=== PATIENT | female | born 1960 | race Caucasian/White ===

== ENCOUNTER 2016-06-25 14:07 | Emergency (ER) | payer SELFPAY ==
[2016-06-25] MEDS ORDERED: HYDROcodone/Acetaminophen 10/325 mg Tablet ONE (15:59)
--- NOTE | 2016-06-25 16:25 | CT ---
CT HEAD NONCONTRAST: History: Headache. Comparison: 09-28-15 FINDINGS: Large right frontoparietal craniectomy defect and small metallic fragments in the operative bed and at the right orbit are again demonstrated. There is slight leftward shift of the septum pellucidum w ithout dilatation of the ventricular system. No acute intracranial hemorrhage is evident. IMPRESSION: 1. Extensive post-operative and post-traumatic changes. No acute intracranial abnormalities are demo nstrated on noncontrast CT head. POS: [facility]
== END 2016-06-25 16:45 | disposition home or self-care (01) ==
LOC: MADERS 14:07
DX: S01.511A Laceration without foreign body of lip, initial encounter (principal); F32.9 Major depressive disorder, single episode, unspecified; F41.9 Anxiety disorder, unspecified; F17.210 Nicotine dependence, cigarettes, uncomplicated; Z79.899 Other long term (current) drug therapy; W18.30XA Fall on same level, unspecified, initial encounter
CPT/HCPCS: 12011; 70450

== ENCOUNTER 2016-12-31 17:25 | Emergency (ER) | payer OTHER, SELFPAY ==
[~2016-12-31 17:25] MED LIST: Sodium Chloride Irrig Solution 250 ML BOT ONE
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
== END 2016-12-31 18:50 | disposition home or self-care (01) ==
LOC: MADERS 17:25
DX: S91.112A Laceration without foreign body of left great toe without damage to nail, initial encounter (principal); S90.31XA Contusion of right foot, initial encounter; F41.9 Anxiety disorder, unspecified; F32.9 Major depressive disorder, single episode, unspecified; F17.210 Nicotine dependence, cigarettes, uncomplicated; V43.62XA Car passenger injured in collision with other type car in traffic accident, initial encounter

== ENCOUNTER 2017-01-03 16:33 | Emergency (ER) | payer SELFPAY ==
[~2017-01-03 16:33] MED LIST changes: +Iopamidol 370 76% 100 ML VIAL ONE; -Sodium Chloride Irrig Solution 250 ML BOT ONE
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
== END 2017-01-03 18:23 | disposition home or self-care (01) ==
LOC: MADERS 16:33
DX: S20.212A Contusion of left front wall of thorax, initial encounter (principal); R10.812 Left upper quadrant abdominal tenderness; F41.9 Anxiety disorder, unspecified; F32.9 Major depressive disorder, single episode, unspecified; F17.210 Nicotine dependence, cigarettes, uncomplicated; V43.92XA Unspecified car occupant injured in collision with other type car in traffic accident, initial encounter
CPT/HCPCS: 71260; 74177

== ENCOUNTER 2018-11-03 15:11 | Inpatient (IN) | payer BC ==
[2018-11-03 15:21] VITALS: BMI 18.6
[2018-11-03] MEDS: ALPRAZolam 0.5 MG TAB PO PRN (18:15)
[2018-11-03] MEDS ORDERED: Oxybutynin ER 5 MG TAB PO SCH (19:15)
[2018-11-03] MEDS: levETIRAcetam 500 MG TAB PO SCH (21:09)
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
[2018-11-04 04:14] LABS: Bilirubin Negative (Negative); Blood, Urine Negative (Negative); Clarity Slightly Cloudy (Clear); Glucose, Urine (Dipstick) Negative (Negative); Leukocyte Small (Negative); Nitrite Negative (Negative); Protein, Urine (Dipstick) Negative (Neg-Trace); Urine Culture Reflex No No; Urobilinogen 0.2 mg/dL (Less than 2)
[2018-11-04 04:21] LABS: RBC/HPF 0-3 HPF (0-3)
[2018-11-04 04:22] LABS: Bacteria/HPF 2+ HPF (None Seen)
[2018-11-04] MEDS: ALPRAZolam 0.5 MG TAB PO PRN ×3 (04:54→16:15)
[2018-11-04 07:31] LABS: #Basophils 0.1 thou/uL (0.0-0.2); #Eosinphils 0.2 thou/uL (0.0-0.7); #Lymphocytes 1.7 thou/uL (1.20-3.40); #Monocytes 0.4 thou/uL (0.11-0.59); %Eosinophils 2.5 % (0.0-10.0); %Monocytes 6.3 % (0.0-10.0); %Neutrophils 63.2 % (42.0-75.0); Hemoglobin 16.4 g/dL (12.0-16.0); Mean Corpuscular HGB CONC 32.9 g/dL (32.0-36.0); Mean Corpuscular Volume 91.3 fL (78.0-98.0); Mean Platelet Volume 4.7 fL (7.4-10.4); Platelet Count 334 thou/uL (130-400); RBC Distribution Width 12.5 % (11.5-14.5); Red Blood Cell (RBC) Count 5.45 mill/uL (4.20-5.40); White Blood Cell (WBC) Count 6.4 thou/uL (4.8-10.8)
[2018-11-04 07:43] LABS: Anion Gap 15 mmol/L (10-20); BUN (Urea Nitrogen) 10 mg/dL (9.8-20.1); Calc. Creatinine Clearance 74 mL/min (70-130); Calcium 9.7 mg/dL (7.8-10.44); Carbon Dioxide 28 mmol/L (22-29); Chloride 103 mmol/L (98-107); Estimated GFR-MDRD 85; Glucose 86 mg/dL (70-105); Potassium 4.7 mmol/L (3.5-5.1); Sodium 141 mmol/L (136-145)
[2018-11-04] MEDS: levETIRAcetam 500 MG TAB PO SCH ×2 (09:12→21:43)
[2018-11-04] MEDS: Oxybutynin ER 5 MG TAB PO SCH (09:52)
[2018-11-04] MEDS: Acetaminophen 500 MG TAB PO PRN (12:54)
[2018-11-04] MEDS: Melatonin 3 MG TAB PO PRN (21:43)
[2018-11-05] MEDS: busPIRone HCl 5 MG TAB PO PRN ×2 (05:51→20:36)
[2018-11-05] MEDS: Oxybutynin ER 5 MG TAB PO SCH (08:08)
[2018-11-05] MEDS: levETIRAcetam 500 MG TAB PO SCH ×2 (08:08→20:35)
[2018-11-05] MEDS: Acetaminophen 500 MG TAB PO PRN (08:14)
[2018-11-05] MEDS: Melatonin 3 MG TAB PO PRN (20:36)
[2018-11-06] MEDS: levETIRAcetam 500 MG TAB PO SCH (08:24)
[2018-11-06] MEDS: Oxybutynin ER 5 MG TAB PO SCH (08:24)
[2018-11-06] MEDS: busPIRone HCl 5 MG TAB PO PRN (08:25)
[2018-11-06 13:00] VITALS: BP 123/67; TEMP 97.6
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
== END 2018-11-06 13:16 | disposition home or self-care (01) | DRG 101 ==
LOC: MADMS 15:11 → UNDOADMIN 15:11
PROVIDERS: ADMIT Family Medicine; ATTEND Family Medicine
DX: G40.909 Epilepsy, unspecified, not intractable, without status epilepticus (principal); R53.1 Weakness; R26.9 Unspecified abnormalities of gait and mobility; Z87.891 Personal history of nicotine dependence; F15.11 Other stimulant abuse, in remission; Z91.14 Patient's other noncompliance with medication regimen; Z91.19 Patient's noncompliance with other medical treatment and regimen; Z87.820 Personal history of traumatic brain injury
CPT/HCPCS: 80048; 80177; 81001; 85025; 87086

== ENCOUNTER 2019-10-13 18:00 | Inpatient (IN) | payer BC, OTHER ==
[2019-10-13] MEDS ORDERED: Milk Of Magnesia 30 ML UDCUP PO PRN ×2 (20:34→21:06)
[2019-10-13] MEDS ORDERED: Acetaminophen 500 MG TAB PO PRN (20:36)
[2019-10-13] MEDS ORDERED: Cepastat Lozenges 1 LOZ PO PRN ×2 (20:36→21:06)
[2019-10-13] MEDS ORDERED: levETIRAcetam 500 MG TAB PO SCH (21:00)
[2019-10-13] MEDS ORDERED: Trospium 20 MG TAB PO SCH (21:00)
[2019-10-13] MEDS: Clindamycin 150 MG CAP PO SCH (23:13)
[2019-10-13] MEDS ORDERED: Bisacodyl 10 MG SUPP PR PRN (23:17)
[2019-10-13] MEDS ORDERED: Mag-Al Plus 1200 MG/1200 MG/120 MG/30 ML UDCUP PO PRN (23:17)
[2019-10-13] MEDS ORDERED: Clindamycin 150 MG CAP PO SCH (23:59)
[2019-10-14] MEDS: Acetaminophen 500 MG TAB PO PRN ×3 (00:32→14:35)
[2019-10-14] MEDS: Clindamycin 150 MG CAP PO SCH ×4 (05:38→23:56)
[2019-10-14] MEDS: levETIRAcetam 500 MG TAB PO SCH ×2 (08:23→20:42)
[2019-10-14] MEDS: Trospium 20 MG TAB PO SCH ×2 (08:23→20:44)
[2019-10-14] MEDS ORDERED: Mupirocin 2% Ointment 22 GM Tube TOP SCH ×2 (09:00)
[2019-10-14] MEDS ORDERED: ESTRADIOL 0.01% VAG SCH ×2 (09:00→21:00)
[2019-10-14] MEDS ORDERED: ESTRADIOL VAG SCH (09:00)
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
[2019-10-14 17:18] LABS: SARS-CoV-2 MS2 Positive; SARS-CoV-2 N Gene Negative; SARS-CoV-2 S Gene Negative; SARS-CoV-2 by NAA Not Detected (NotDetected); SARS-CoV-2 orf1ab Negative
[2019-10-14] MEDS: Mupirocin 2% Ointment 22 GM Tube TOP SCH (20:42)
[2019-10-14] MEDS: Acetaminophen 325 MG TAB PO PRN (20:45)
[2019-10-15] MEDS: Clindamycin 150 MG CAP PO SCH ×3 (05:47→17:52)
[2019-10-15] MEDS: Acetaminophen 325 MG TAB PO PRN ×5 (06:22→21:49)
[2019-10-15] MEDS: levETIRAcetam 500 MG TAB PO SCH ×2 (08:01→21:49)
[2019-10-15] MEDS: Trospium 20 MG TAB PO SCH ×2 (08:01→21:48)
[2019-10-15] MEDS: Mupirocin 2% Ointment 22 GM Tube TOP SCH (21:50)
[2019-10-15] MEDS: Estradiol 0.01% Vaginal Cream 42.5 gm Tube VAG SCH (21:50)
[2019-10-16] MEDS: Clindamycin 150 MG CAP PO SCH ×5 (00:01→23:52)
[2019-10-16] MEDS: Acetaminophen 325 MG TAB PO PRN ×3 (08:05→19:51)
[2019-10-16] MEDS: Trospium 20 MG TAB PO SCH ×2 (08:06→20:57)
[2019-10-16] MEDS: levETIRAcetam 500 MG TAB PO SCH ×2 (08:06→20:57)
[2019-10-16] MEDS: Mupirocin 2% Ointment 22 GM Tube TOP SCH (20:57)
[2019-10-16] MEDS: Estradiol 0.01% Vaginal Cream 42.5 gm Tube VAG SCH (20:59)
[2019-10-17] MEDS: Clindamycin 150 MG CAP PO SCH ×4 (05:32→23:01)
[2019-10-17] MEDS: Acetaminophen 325 MG TAB PO PRN ×3 (05:33→23:01)
[2019-10-17] MEDS: Trospium 20 MG TAB PO SCH ×2 (08:04→20:04)
[2019-10-17] MEDS: levETIRAcetam 500 MG TAB PO SCH ×2 (08:04→20:04)
[2019-10-17] MEDS: Estradiol 0.01% Vaginal Cream 42.5 gm Tube VAG SCH (20:05)
[2019-10-17] MEDS: Mupirocin 2% Ointment 22 GM Tube TOP SCH (20:05)
[2019-10-18] MEDS: Clindamycin 150 MG CAP PO SCH ×4 (05:33→23:57)
[2019-10-18] MEDS: Trospium 20 MG TAB PO SCH ×2 (08:08→20:52)
[2019-10-18] MEDS: levETIRAcetam 500 MG TAB PO SCH ×2 (08:08→20:52)
[2019-10-18] MEDS: Acetaminophen 325 MG TAB PO PRN ×4 (08:11→23:57)
[2019-10-18] MEDS: Estradiol 0.01% Vaginal Cream 42.5 gm Tube VAG SCH (20:53)
[2019-10-18] MEDS: Mupirocin 2% Ointment 22 GM Tube TOP SCH (20:54)
[2019-10-19] MEDS: Clindamycin 150 MG CAP PO SCH ×4 (05:39→23:42)
[2019-10-19] MEDS: Acetaminophen 325 MG TAB PO PRN ×5 (05:39→23:42)
[2019-10-19] MEDS: Trospium 20 MG TAB PO SCH ×2 (08:11→21:55)
[2019-10-19] MEDS: levETIRAcetam 500 MG TAB PO SCH ×2 (08:11→21:55)
[2019-10-19] MEDS: Mupirocin 2% Ointment 22 GM Tube TOP SCH (21:56)
[2019-10-19] MEDS: Estradiol 0.01% Vaginal Cream 42.5 gm Tube VAG SCH (21:57)
[2019-10-20] MEDS: Acetaminophen 325 MG TAB PO PRN ×4 (03:14→20:56)
[2019-10-20] MEDS: Clindamycin 150 MG CAP PO SCH ×3 (05:42→17:30)
[2019-10-20] MEDS: Trospium 20 MG TAB PO SCH ×2 (09:20→20:00)
[2019-10-20] MEDS: levETIRAcetam 500 MG TAB PO SCH ×2 (09:20→20:00)
[2019-10-20] MEDS: Mupirocin 2% Ointment 22 GM Tube TOP SCH (20:02)
[2019-10-20] MEDS: Estradiol 0.01% Vaginal Cream 42.5 gm Tube VAG SCH (20:02)
[2019-10-21] MEDS: Clindamycin 150 MG CAP PO SCH ×4 (00:43→17:00)
[2019-10-21] MEDS: Acetaminophen 325 MG TAB PO PRN ×5 (00:43→21:22)
[2019-10-21] MEDS: levETIRAcetam 500 MG TAB PO SCH ×2 (08:19→21:22)
[2019-10-21] MEDS: Trospium 20 MG TAB PO SCH ×2 (08:19→21:22)
[2019-10-21] MEDS: Estradiol 0.01% Vaginal Cream 42.5 gm Tube VAG SCH (21:23)
[2019-10-21] MEDS: Mupirocin 2% Ointment 22 GM Tube TOP SCH (21:24)
[2019-10-22] MEDS: Clindamycin 150 MG CAP PO SCH ×5 (00:58→23:56)
[2019-10-22] MEDS: Acetaminophen 325 MG TAB PO PRN ×4 (00:58→22:34)
[2019-10-22] MEDS: Trospium 20 MG TAB PO SCH ×2 (08:06→21:05)
[2019-10-22] MEDS: levETIRAcetam 500 MG TAB PO SCH ×2 (08:06→21:05)
[2019-10-22] MEDS: Mupirocin 2% Ointment 22 GM Tube TOP SCH (21:05)
[2019-10-22] MEDS: Estradiol 0.01% Vaginal Cream 42.5 gm Tube VAG SCH (21:08)
[2019-10-23] MEDS: Acetaminophen 325 MG TAB PO PRN ×4 (03:50→19:14)
[2019-10-23] MEDS: Clindamycin 150 MG CAP PO SCH ×5 (05:29→23:18)
[2019-10-23] MEDS: levETIRAcetam 500 MG TAB PO SCH ×2 (08:19→20:00)
[2019-10-23] MEDS: Trospium 20 MG TAB PO SCH ×2 (08:20→19:59)
[2019-10-23] MEDS: Mupirocin 2% Ointment 22 GM Tube TOP SCH (19:59)
[2019-10-23] MEDS: Estradiol 0.01% Vaginal Cream 42.5 gm Tube VAG SCH (20:00)
[2019-10-24] MEDS: Acetaminophen 325 MG TAB PO PRN ×4 (01:01→20:46)
[2019-10-24] MEDS: Clindamycin 150 MG CAP PO SCH ×4 (05:02→23:36)
[2019-10-24] MEDS: Trospium 20 MG TAB PO SCH ×2 (09:13→20:09)
[2019-10-24] MEDS: levETIRAcetam 500 MG TAB PO SCH ×2 (09:13→20:10)
[2019-10-24] MEDS: Mupirocin 2% Ointment 22 GM Tube TOP SCH (20:10)
[2019-10-24] MEDS: Estradiol 0.01% Vaginal Cream 42.5 gm Tube VAG SCH (20:11)
[2019-10-25] MEDS: Clindamycin 150 MG CAP PO SCH ×4 (04:59→23:37)
[2019-10-25] MEDS: Acetaminophen 325 MG TAB PO PRN ×4 (04:59→20:26)
[2019-10-25] MEDS: levETIRAcetam 500 MG TAB PO SCH ×2 (08:08→20:23)
[2019-10-25] MEDS: Trospium 20 MG TAB PO SCH ×2 (08:08→20:22)
[2019-10-25] MEDS: Estradiol 0.01% Vaginal Cream 42.5 gm Tube VAG SCH (20:23)
[2019-10-25] MEDS: Mupirocin 2% Ointment 22 GM Tube TOP SCH (20:23)
[2019-10-26] MEDS: Acetaminophen 325 MG TAB PO PRN ×6 (00:08→21:15)
[2019-10-26] MEDS: Clindamycin 150 MG CAP PO SCH ×4 (05:07→23:07)
[2019-10-26] MEDS: levETIRAcetam 500 MG TAB PO SCH ×2 (08:05→21:16)
[2019-10-26] MEDS: Trospium 20 MG TAB PO SCH ×2 (08:05→21:16)
[2019-10-26] MEDS: Mupirocin 2% Ointment 22 GM Tube TOP SCH (21:16)
[2019-10-26] MEDS: Estradiol 0.01% Vaginal Cream 42.5 gm Tube VAG SCH (21:16)
[2019-10-27] MEDS: Acetaminophen 325 MG TAB PO PRN ×5 (01:03→20:52)
[2019-10-27] MEDS: Clindamycin 150 MG CAP PO SCH ×4 (05:45→23:50)
[2019-10-27] MEDS: levETIRAcetam 500 MG TAB PO SCH ×2 (08:23→20:52)
[2019-10-27] MEDS: Trospium 20 MG TAB PO SCH ×2 (08:23→20:52)
[2019-10-27] MEDS: Mupirocin 2% Ointment 22 GM Tube TOP SCH (20:52)
[2019-10-27] MEDS: Estradiol 0.01% Vaginal Cream 42.5 gm Tube VAG SCH (20:53)
[2019-10-28] MEDS: Acetaminophen 325 MG TAB PO PRN ×6 (01:35→22:21)
[2019-10-28] MEDS: Clindamycin 150 MG CAP PO SCH ×3 (05:10→17:10)
[2019-10-28] MEDS: levETIRAcetam 500 MG TAB PO SCH ×2 (09:27→20:46)
[2019-10-28] MEDS: Trospium 20 MG TAB PO SCH ×2 (09:27→20:46)
[2019-10-28] MEDS: Mupirocin 2% Ointment 22 GM Tube TOP SCH (20:46)
[2019-10-28] MEDS: Estradiol 0.01% Vaginal Cream 42.5 gm Tube VAG SCH (20:47)
[2019-10-29] MEDS: Clindamycin 150 MG CAP PO SCH ×4 (00:10→17:50)
[2019-10-29] MEDS: Acetaminophen 325 MG TAB PO PRN ×4 (02:05→20:30)
[2019-10-29] MEDS: Trospium 20 MG TAB PO SCH ×2 (08:25→20:31)
[2019-10-29] MEDS: levETIRAcetam 500 MG TAB PO SCH ×2 (08:25→20:31)
[2019-10-29] MEDS: Estradiol 0.01% Vaginal Cream 42.5 gm Tube VAG SCH (20:31)
[2019-10-29] MEDS: Mupirocin 2% Ointment 22 GM Tube TOP SCH (20:32)
[2019-10-30] MEDS: Acetaminophen 325 MG TAB PO PRN ×4 (00:02→17:46)
[2019-10-30] MEDS: Clindamycin 150 MG CAP PO SCH ×4 (00:03→17:46)
[2019-10-30] MEDS: levETIRAcetam 500 MG TAB PO SCH ×2 (07:46→20:57)
[2019-10-30] MEDS: Trospium 20 MG TAB PO SCH ×2 (07:46→20:57)
[2019-10-30] MEDS: Estradiol 0.01% Vaginal Cream 42.5 gm Tube VAG SCH (20:57)
[2019-10-30] MEDS: Mupirocin 2% Ointment 22 GM Tube TOP SCH (20:58)
[2019-10-31] MEDS: Acetaminophen 325 MG TAB PO PRN ×5 (00:38→20:37)
[2019-10-31] MEDS: Clindamycin 150 MG CAP PO SCH ×4 (00:38→17:16)
[2019-10-31] MEDS: levETIRAcetam 500 MG TAB PO SCH ×2 (08:26→20:33)
[2019-10-31] MEDS: Trospium 20 MG TAB PO SCH ×2 (08:27→20:33)
[2019-10-31] MEDS: Mupirocin 2% Ointment 22 GM Tube TOP SCH (20:33)
[2019-10-31] MEDS: Estradiol 0.01% Vaginal Cream 42.5 gm Tube VAG SCH (20:33)
[2019-11-01] MEDS: Clindamycin 150 MG CAP PO SCH ×4 (00:04→17:58)
[2019-11-01] MEDS: Acetaminophen 325 MG TAB PO PRN ×6 (00:04→20:26)
[2019-11-01] MEDS: Trospium 20 MG TAB PO SCH ×2 (08:01→20:26)
[2019-11-01] MEDS: levETIRAcetam 500 MG TAB PO SCH ×2 (08:43→20:26)
[2019-11-01] MEDS: Estradiol 0.01% Vaginal Cream 42.5 gm Tube VAG SCH (20:27)
[2019-11-01] MEDS: Mupirocin 2% Ointment 22 GM Tube TOP SCH (20:27)
[2019-11-02] MEDS: Clindamycin 150 MG CAP PO SCH ×5 (00:03→23:31)
[2019-11-02] MEDS: Acetaminophen 325 MG TAB PO PRN ×5 (00:03→20:26)
[2019-11-02] MEDS: levETIRAcetam 500 MG TAB PO SCH ×2 (08:20→20:28)
[2019-11-02] MEDS: Trospium 20 MG TAB PO SCH ×2 (08:21→20:28)
[2019-11-02] MEDS: Estradiol 0.01% Vaginal Cream 42.5 gm Tube VAG SCH (20:30)
[2019-11-02] MEDS: Mupirocin 2% Ointment 22 GM Tube TOP SCH (20:30)
[2019-11-03] MEDS: Acetaminophen 325 MG TAB PO PRN ×4 (00:31→21:42)
[2019-11-03] MEDS: Clindamycin 150 MG CAP PO SCH ×2 (05:31→13:11)
[2019-11-03] MEDS: levETIRAcetam 500 MG TAB PO SCH ×2 (07:59→21:42)
[2019-11-03] MEDS: Trospium 20 MG TAB PO SCH ×2 (07:59→21:42)
[2019-11-03] MEDS: Estradiol 0.01% Vaginal Cream 42.5 gm Tube VAG SCH (21:40)
[2019-11-03] MEDS: Mupirocin 2% Ointment 22 GM Tube TOP SCH (21:42)
[2019-11-04] MEDS: Acetaminophen 325 MG TAB PO PRN ×3 (01:19→21:13)
[2019-11-04] MEDS: Trospium 20 MG TAB PO SCH ×2 (09:10→21:12)
[2019-11-04] MEDS: levETIRAcetam 500 MG TAB PO SCH ×2 (09:10→21:12)
[2019-11-04] MEDS: Estradiol 0.01% Vaginal Cream 42.5 gm Tube VAG SCH (21:12)
[2019-11-04] MEDS: Mupirocin 2% Ointment 22 GM Tube TOP SCH (21:12)
[2019-11-05] MEDS: Acetaminophen 325 MG TAB PO PRN ×3 (05:44→21:27)
[2019-11-05] MEDS: levETIRAcetam 500 MG TAB PO SCH ×2 (10:41→21:27)
[2019-11-05] MEDS: Trospium 20 MG TAB PO SCH ×2 (10:41→21:27)
[2019-11-05 13:03] VITALS: BMI 19.5
[2019-11-05 19:33] VITALS: TEMP 98.3
[2019-11-05] MEDS: Estradiol 0.01% Vaginal Cream 42.5 gm Tube VAG SCH (21:29)
[2019-11-05] MEDS: Mupirocin 2% Ointment 22 GM Tube TOP SCH (21:30)
[2019-11-06] MEDS: Acetaminophen 325 MG TAB PO PRN (01:25)
[2019-11-06 07:45] VITALS: BP 122/76
[2019-11-06] MEDS: Trospium 20 MG TAB PO SCH (08:05)
[2019-11-06] MEDS: levETIRAcetam 500 MG TAB PO SCH (08:05)
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
== END 2019-11-06 14:17 | disposition home or self-care (01) | DRG 948 ==
LOC: MADMS 18:00
PROVIDERS: ADMIT Family Medicine; ATTEND Family Medicine
DX: R53.81 Other malaise (principal); F32.9 Major depressive disorder, single episode, unspecified; N95.2 Postmenopausal atrophic vaginitis; R26.89 Other abnormalities of gait and mobility; F41.9 Anxiety disorder, unspecified; Z87.820 Personal history of traumatic brain injury; G40.909 Epilepsy, unspecified, not intractable, without status epilepticus; R53.1 Weakness; N32.81 Overactive bladder; Z98.890 Other specified postprocedural states; Z87.891 Personal history of nicotine dependence; Z20.828 Contact with and (suspected) exposure to other viral communicable diseases
CPT/HCPCS: 87635; U0003